=== PATIENT | male | born 1970 | race Two or more races ===

== ENCOUNTER → 2017-02-02 | Outpatient (REF) | payer OTHER ==
[~2017-02-02] MED LIST: /PANT40TA PO; ACET50TA PO; AUGM875T27 PO; NO HOME MEDS; OXYCO5TA PO; PERCOCET PO; [UNRECOGNIZED DRUG - CODE] PO
== END ==
LOC: M SMT 10:45
PROVIDERS: ATTEND Urology
DX: Z30.2 Encounter for sterilization (principal)

== ENCOUNTER → 2017-11-28 | Outpatient (CLI) | payer SELFPAY, OTHER ==
[2017-12-02 00:07] LABS: HERPES ZOSTER, VARICELLA IgM <0.91 index (0.00-0.90)
[2017-12-02 00:07] LABS: HERPES ZOSTER, VARICELLA IgG <135 index (Immune >165)
== END ==
LOC: M WUC 11:43
DX: B01.9 Varicella without complication (principal)